=== PATIENT | female | born 1935 | race Caucasian/White ===

== ENCOUNTER 2017-10-07 18:45 | Inpatient (IN) | payer MEDICARE, OTHER ==
[~2017-10-07] VITALS: Ht 152.4 cm; Wt 61.2 kg
[~2017-10-07 18:45] MED LIST: COENZYME Q10200 M2 PO; COUMADIN 5 MG TA5 M1 PO; CRESTOR5 MG; EVISTA PO; LANOXIN 0.120.125 M1 PO; NIASPAN 500 MG500 M1 PO; NORCO 5-325 TA1 EACH PO; SEE COMMENTS; TOPROL XL100 MG PO; VITAMIN D-32000 UNIT PO
[2017-10-07 18:50] VITALS: BP 145/69
[2017-10-07 18:57] LABS: HEMATOCRIT 40.7 % (37.0-47.0); MCH 33.8 pg (26.0-34.0); MCHC 34.5 g/dL (28.0-37.0); MCV 98.1 fL (80.0-100.0); MPV 7.7 fl. (7.2-11.1); NUCLEATED RBCS 0 /100WBC; PLATELET COUNT* 237 thou/uL (150-400); RBC 4.15 mil/uL (4.20-5.00); RDW-CV 13.8 % (10.5-14.5); WBC 7.8 thou/uL (4.0-11.0)
[2017-10-07] MEDS ORDERED: LISINOPRIL20 MG PO (19:02)
[2017-10-07 19:06] LABS: ANION GAP 11 mmol/L (7-16); BUN 12 mg/dL (7-18); CALCIUM 8.3 mg/dL (8.5-10.1); CHLORIDE 102 mmol/L (98-107); CO2 25 mmol/L (21-32); CREATININE 0.8 mg/dL (0.6-1.3); GLUCOSE 132 mg/dL (70-99); POTASSIUM 3.9 mmol/L (3.5-5.1); SODIUM 138 mmol/L (136-145)
[2017-10-07 19:09] LABS: INR 1.7; PROTIME 16.4 Seconds (9.20-11.50)
[2017-10-07 19:16] LABS: ABSOLUTE BASOPHILS 0.1 thou/uL (0.0-0.2); ABSOLUTE NEUTROPHILS 7.3 thou/uL (1.6-8.1); ALBUMIN 3.7 g/dL (3.4-5.0); ALKALINE PHOSPHATASE 62 U/L (46-116); NT-PRO BRAIN NAT PEPTIDE 1344 pg/mL (<300); PLATELET ESTIMATE ADEQUATE; SGOT 31 U/L (15-37); SGPT 29 U/L (30-65); TOTAL BILIRUBIN 0.9 mg/dL (<0.1-1.0); TOTAL PROTEIN 7.9 g/dL (6.4-8.2); TROPONIN-I LEVEL <0.06 ng/mL (<0.06)
[2017-10-07 19:17] LABS: ABSOLUTE LYMPHOCYTES 0.4 thou/uL (0.8-5.3); ABSOLUTE MONOCYTES 0.1 thou/uL (0.0-1.2)
[2017-10-07 20:48] VITALS: BP 149/74
[2017-10-07 21:15] VITALS: BP 164/69
[2017-10-07] MEDS ORDERED: COUMADIN 2.5MG2.5 M1 PO (22:21)
[2017-10-08] VITALS: BP 160/80
[2017-10-08 04:00] VITALS: BP 156/41
--- NOTE | 2017-10-08 04:30 | NUR ---
PT ALERT ORIENTED. BREATH SOUNDS WHEEZING. ON RA. O2 SATS UPPER 90s. TELEMETRY SHOWS SR. FLU SWAB TAKEN AND SENT TO LAB. PT IN ISOLATION FOR DROPLET PRECAUTIONS PENDING RESULTS.
[2017-10-08 05:20] LABS: INFLUENZA A ANTIGEN None Detected (None Detect); INFLUENZA B ANTIGEN None Detected (None Detect)
[2017-10-08 08:00] VITALS: BP 149/66
[2017-10-08 11:30] VITALS: BP 139/53
--- NOTE | 2017-10-08 11:59 | NUR ---
CM ASSESSMENT: Pt is A&O. Resides at [facility]. Independent with ADLS. [facility] provides breakfast and 1 hot meal a day, either lunch or dinner, Pt is able to prepare the 3rd meal. Hx of but does not know the name of the agency. No home o2. Pt has a walker and cane that she can use if necessary. Pt has a cleaning lady. Hx of SNF at [facility]. Pt's goal is to return home once medically stable. Open to HH at [facility] if needed. Following.
--- NOTE | 2017-10-08 13:19 | NUR ---
ASSUMED CARE OF PT AT 0730. PT RESTING IN BED WAITING FOR BREAKFAST. PT A&0X4. DENIES ANY PAIN OR SHORTNESS OF BREATH. PT ON RA SAT 97% THIS AM. WHEEZES NOTED. PT PLACED ON 2L NC FOR COMFORT AND TO EASE BREATHING PT TRACING AFIB ON THE DIRECT MAIL MANAGER, RATE IN THE 110'S. CARDIZEM 30 MG Q6H PO STARTED PER DR HERNANDEZ. FLU SWAB RESULT BACK NEGATIVE. ISOLATION REMOVED. PT UP WITH 1 ASSIST, UNSTEADY AND WEAK. CARDIOLOGY CONSULT IN PLACE. AM ASSESSMENT CHARTED. MEDICATIONS PER DEC. PT REPOSITIONS SELF IN BED WITH REMINDERS. HOURLY ROUNDING OBSERVED. BED IN LOW POSITION. CALL LIGHT WITHIN REACH. WILL CONTINUE PLAN OF CARE.
[2017-10-08 15:30] VITALS: BP 154/62
--- NOTE | 2017-10-08 16:57 | 2DMMODE ---
[place] [address] 2 D/M-MODE ECHOCARDIOGRAM Name: ALBERTA TINOCO Room: [address] IN [facility]#: [id number] Admission: 10/07/17 Attend Phys: Chaya Liu Discharge: Date of : 33 Date of Service: 10/08/17 1657 Report #: [id number] THIS REPORT FOR: //name// APPROVED REPORT Study performed: 10/08/2017 15:41:16 EXAM: Comprehensive 2D, Doppler, and color-flow Echocardiogram Patient Location: In-Patient Room #: [facility] Status: routine BSA: 1.56 HR: 100 bpm BP: 153/82 mmHg Rhythm: Atrial Fibrillation Other Information Study Quality: Good Indications Atrial Fibrillation 2D Dimensions LVEF(%): 50.76 (>50%) IVSd: 10.61 (7-11mm) LVOT Diam: 19.38 (18-24mm) LVDd: 40.86 mm PWd: 9.52 (7-11mm) Ascending Ao: 33.84 (22-36mm) LVDs: 30.44 (25-40mm) Aortic Root: 31.04 mm Delvalle's LVEF: 50.76 % Volumes Left Atrial Volume (Systole) LA ESV Index: 51.20 mL/m2 Aortic Valve AoV Peak Pawel.: 1.49 m/s AO Peak Gr.: 8.89 mmHg LVOT Max P.46 mmHg AO Mean Gr.: 5.35 mmHg LVOT Mean P.99 mmHg LVOT Max V: 1.06 m/s AO V2 VTI: 25.03 cm LVOT Mean V: 0.64 m/s SELMA (VTI): 2.19 cm2 LVOT V1 VTI: 18.56 cm AI [place]: 3.46 m/s2 AI PHT: 349.23 [place] [address] 2 D/M-MODE ECHOCARDIOGRAM Name: ALBERTA TINOCO Room: [address] IN ..#: [id number] Admission: 10/07/17 Attend Phys: Chaya Liu Discharge: Date of : 33 Date of Service: 10/08/17 1657 Report #: [id number] Mitral Valve MV Decel. Time: 190.62 ms MV PHT: 55.28 ms MVA (PHT): 3.98 cm2 TDI Medial E' Pawel.: 0.11 m/s Lateral E' Pawel.: 0.13 m/s Pulmonary Valve PV Peak Pawel.: 1.00 m/s PV Peak Gr.: 4.02 mmHg Tricuspid Valve TR Peak Gr.: 20.52 mmHg RVSP: 25.00 mmHg Left Ventricle The left ventricle is normal size. There is normal LV segmental wall motion. There is normal left ventricular wall thickness. Left ventricular systolic function is normal. The left ventricular ejection fraction is within the normal range. LVEF is 55%. This study is not technically sufficient to allow evaluation of the LV diastolic function due to atrial fibrillation. Right Ventricle The right ventricle is normal size. The right ventricular systolic function is normal. Atria Left atrium is moderately dilated. The right atrium size is normal. Aortic Valve Mild aortic valve sclerosis. Mild aortic regurgitation. There is no aortic valvular stenosis. Mitral Valve The mitral valve is normal in structure. Mild mitral regurgitation. No evidence of mitral valve stenosis. Tricuspid Valve The tricuspid valve is normal in structure. Trace tricuspid regurgitation. The RVSP is ___25____ mmHg. Pulmonic Valve The pulmonary valve is normal in structure. There is no pulmonic [place] [address] 2 D/M-MODE ECHOCARDIOGRAM Name: ALBERTA TINOCO Jacinta Room: [address] IN [facility]#: [id number] Admission: 10/07/17 Attend Phys: Chaya Liu Discharge: Date of : 33 Date of Service: 10/08/17 1657 Report #: [id number] Great Vessels The aortic root is normal in size. IVC is normal in size and collapses with >50% inspiration Pericardium There is no pericardial effusion. <Conclusion> There is normal left ventricular wall thickness. Left ventricular systolic function is normal. The left ventricular ejection fraction is within the normal range. LVEF is 55%. This study is not technically sufficient to allow evaluation of the LV diastolic function due to atrial fibrillation. The right ventricle is normal size. Left atrium is moderately dilated. Mild aortic valve sclerosis. Mild aortic regurgitation. There is no aortic valvular stenosis. The mitral valve is normal in structure. Mild mitral regurgitation. The tricuspid valve is normal in structure. Trace tricuspid regurgitation. The RVSP is ___25____ mmHg. IVC is normal in size and collapses with >50% inspiration There is no pericardial effusion. There is normal LV segmental wall motion. <ELECTRONICALLY SIGNED> By: Levi Willson MD, FACC 10/08/17 1657 165 165 Levi Willson MD, FACC /INF
--- NOTE | 2017-10-08 18:06 | NUR ---
NO ACUTE CHANGES THROUGHOUT SHIFT. REFER TO CHARTING. CARDIOLOGY HERE TO SEE PT. ORDERS RECEIVED FOR ECHO. RESULTS BACK AT 55%. PT CONTINUES TO TRACE AFIB ON THE AGATE SETTER. RATE IN THE 90'S-LOW 100'S, CONTROLLED BETTER THROUGHOUT SHIFT WITH ADDITION OF CARDIZEM Q6H PO. PT CONTINUES TO BE ON RA-2L FOR PT COMFORT SAT UPPER 90'S. DENIES ANY SHORTNESS OF BREATH. PT UP WITH 1 ASSIST TO BSC. MEDICATIONS PER DEC. PT REPOSITIONS SELF IN BED WITH REMINDERS. HOURLY ROUNDING OBSERVED. BED IN LOW POSITION. CALL LIGHT WITHIN REACH. WILL CONTINUE PLAN OF CARE.
[2017-10-08 20:00] VITALS: BP 129/71
[2017-10-09 00:22] VITALS: BP 105/55
[2017-10-09 04:04] VITALS: BP 117/58
[2017-10-09 05:08] LABS: ABSOLUTE EOSINOPHILS 0.4 thou/uL (0.0-0.7); ABSOLUTE LYMPHOCYTES 1.7 thou/uL (0.8-5.3); ABSOLUTE NEUTROPHILS 1.8 thou/uL (1.6-8.1); BASOPHILS 0.8 %; EOSINOPHILS 7.8 %; HEMATOCRIT 38.3 % (37.0-47.0); HEMOGLOBIN 12.8 gm/dL (12.0-15.0); LYMPHOCYTES 34.2 %; MCHC 33.5 g/dL (28.0-37.0); MCV 98.5 fL (80.0-100.0); MONOCYTES 20.7 %; MPV 7.8 fl. (7.2-11.1); NUCLEATED RBCS 0 /100WBC; PLATELET COUNT* 224 thou/uL (150-400); POLYS 36.5 %; RBC 3.88 mil/uL (4.20-5.00); RDW-CV 13.5 % (10.5-14.5); WBC 4.9 thou/uL (4.0-11.0)
--- NOTE | 2017-10-09 05:14 | NUR ---
ASSUMED CARE AROUND 1930. PT A/OX4. NO NEW CONCERNS VOICED DURING SHIFT, RESTED SOME. TELE MONITOR TRACING AFIB WITH HR 80'S-110'S AND UP TO 130'S WHEN UP TO BSC. ON 2L NC, PT REPORTS SOA WITH ACTIVITY. DENIES CHEST PAIN OR OTHER PAIN. IV SALINE LOCKED. UP SBA TO BSC TONIGHT. VSS, AFEBRILE. CALL LIGHT IN REACH, BEDALARM ON, WILL CONTINUE WITH PLAN OF CARE.
[2017-10-09 05:16] LABS: CALCIUM 7.8 mg/dL (8.5-10.1)
[2017-10-09 05:21] LABS: INR 1.6; PROTIME 15.4 Seconds (9.20-11.50)
[2017-10-09 08:00] VITALS: BP 131/57
--- NOTE | 2017-10-09 10:06 | NUR ---
ASSUMED CARE OF PT AT 0730. PT RESTING IN BED WAITING FOR BREAKFAST. PT A&0X4. COMPLAINS OF GENERALIZED PAIN. TREATED WITH PRN TYLENOL WITH RELIEF. PT TRACING AFIB ON THE RENT CONTROL OFFICE MANAGER. RATE IN THE 110'S-120'S. YOLY, CARDIOLOGY CORPORATE EVENTS DIRECTOR HERE TO SEE PT. ORDERS RECEIVED TO DC CARDIZEM 30MG PO Q6H AND ADD CARDIZEM 120 MG PO. REFER TO EMAR. BREATHING TREATMENTS CHANGED TO XOPENEX WELL. PT ON RA SAT 97%. DENIES ANY SHORTNESS OF BREATH. LOOSE COUGH AND WHEEZES NOTED. PT UP WITH 1 ASSIST AND WALKER TO BATHROOM/BSC. PT GOAL FOR TODAY IS TO RATE CONTROL AFIB, WORK WITH PHYSICAL AND OCCUPATIONAL THERAPY AND USE IS Q1HOUR. AM ASSESSMENT CHARTED. MEDICATIONS PER DEC. PT REPOSITIONS SELF IN BED WITH REMINDERS. HOURLY ROUNDING OBSERVED. BED IN LOW POSITION. BED ALARM IN PLACE. FALL PRECAUTIONS IN PLACE. CALL LIGHT WITHIN REACH. WILL CONTINUE PLAN OF CARE.
--- NOTE | 2017-10-09 13:59 | EKG ---
[place] [address] ELECTROCARDIOGRAM REPORT Name: ALBERTA TINOCO Room: [address] ADM IN [facility]#: [id number] Admission: 10/07/17 Attend Phys: Jacinta Lamb Discharge: Date of : 33 Report #: [id number] THIS REPORT FOR: //name// [facility] ED Test Date: 2017-10-07 Test Time: 19:22:58 Pat Name: ALBERTA TINOCO Department: Room: [facility] Gender: F Information Technology Specialist: TV : 1935 Requested By: Jenaro Mann Order Number: [id number] MD: Levi Willson Measurements Intervals [place] Rate: 111 P: OR: QRS: 24 QRSD: 88 T: -22 QT: 327 QTc: 445 Interpretive Statements Atrial fibrillation with an increase response Baseline wander in lead(s) V1,V3 Compared to ECG 03/08/2011 15:04: Possible ischemia now present Electronically Signed On 10-09-2017 13:59:36 PREVENTIVE MEDICINE OFFICER by Levi Willson [email or web address] <ELECTRONICALLY SIGNED> By: Levi Willson MD, [facility] 10/09/17 1859 192 192 Levi Willson MD, [facility] /EPI
[2017-10-09 15:30] VITALS: BP 105/62
--- NOTE | 2017-10-09 16:33 | NUR ---
NO ACUTE CHANGES THROUGHOUT SHIFT. REFER TO CHARTING. PT PROGRESSING TOWARDS GOALS. CARDIOLOGY SIGNED OFF PER YOLY ALMONTE, CARDIOLOGY REFERRAL NURSE. PT WORKED WITH PHYSICAL AND OCCUPATIONAL THERAPY TODAY. TOLERATED WELL. AMBULATED IN THE HALLWAY WITH PHYSICAL THERAPY. CONTINUES TO TRACE AFIB ON THE DISPATCH LEAD. RATE IN THE 80'S-90'S THIS AFTERNOON. ON RA SAT UPPER 90'S. DENIES ANY SHORTNESS OF BREATH. PT UP WITH 1 ASSIST WALKER AND GAIT BELT TO BATHROOM OR BSC. PT UP TO RECLINER MULTIPLE TIMES THROUGHOUT SHIFT. MEDICATIONS PER DEC. PT REPOSITIONS SELF IN BED WITH REMINDERS. HOURLY ROUNDING OBSERVED. BED IN LOW POSITION. BED ALARM IN PLACE. FALL PRECAUTIONS IN PLACE. CALL LIGHT WITHIN REACH. WILL CONTINUE PLAN OF CARE.
[2017-10-09 20:00] VITALS: BP 131/54
[2017-10-10] VITALS: BP 129/54
[2017-10-10 04:00] VITALS: BP 146/51
[2017-10-10 05:08] LABS: HEMATOCRIT 37.9 % (37.0-47.0); HEMOGLOBIN 12.9 gm/dL (12.0-15.0); MCH 33.4 pg (26.0-34.0); MCHC 34.1 g/dL (28.0-37.0); MCV 97.9 fL (80.0-100.0); MPV 7.7 fl. (7.2-11.1); NUCLEATED RBCS 0 /100WBC; PLATELET COUNT* 227 thou/uL (150-400); RBC 3.87 mil/uL (4.20-5.00); WBC 5.4 thou/uL (4.0-11.0)
[2017-10-10 05:10] LABS: INR 1.7; PROTIME 16.6 Seconds (9.20-11.50)
--- NOTE | 2017-10-10 05:21 | NUR ---
ASSUMED CARE OF PATIENT AT APPROXIMATELY 2200. PATIENT HAS BEEN A/O X 4 AND VSS. PATIENT CONTINUES TO HAVE EXPIRATORY WHEEZES DURING BREATHING. PATIENT VERBALIZED THAT BENZONATATE PEARLS APPEAR TO BE HELPING HER COUGHING. PATIENT IS UP WITH ASSIST WHILE USING WALKER TO BATHROOM OR COMMODE. PATIENT REMAINS AFIB ON MONITOR. NURSING TO FOLLOW-UP NECESSARY. ALL FALL PRECAUTIONS IN PLACE, INCLUDING CALL LIGHT WITHIN REACH. WILL CONTINUE TO MONITOR CLOSELY.
[2017-10-10 05:29] LABS: CALCIUM 8.5 mg/dL (8.5-10.1); CREATININE 0.9 mg/dL (0.6-1.3); POTASSIUM 4.2 mmol/L (3.5-5.1)
[2017-10-10 07:05] LABS: ABSOLUTE EOSINOPHILS 0.6 thou/uL (0.0-0.7); ABSOLUTE LYMPHOCYTES 1.7 thou/uL (0.8-5.3); ABSOLUTE MONOCYTES 0.8 thou/uL (0.0-1.2); ABSOLUTE NEUTROPHILS 2.3 thou/uL (1.6-8.1)
[2017-10-10 07:06] LABS: PLATELET ESTIMATE ADEQUATE
[2017-10-10 08:00] VITALS: BP 146/64
[2017-10-10 11:25] VITALS: BP 163/92
[2017-10-10 16:27] VITALS: BP 145/66
--- NOTE | 2017-10-10 18:54 | NUR ---
DAY 4 OF STAY. A/O X 4, UP WITH ASSIST, DID WALK 330+ FEET IN HESS WITH USE OF WALKER AND STANDBY ASSIST. DENIES DISCOMFORT, REPORTS INCREASED PRODUCTION OF PHLEGM/MUCOUS WITH COUGHING. NATHALIE MEDS AND CARES WITHOUT C/O. CONT POC.
[2017-10-10 20:00] VITALS: BP 145/57
--- NOTE | 2017-10-10 22:48 | NUR ---
PATIENT ALERT AND ORIENTED TO SURROUNDINGS. TOOK MEDS WITHOUT DIFFICULTIES. UP TO COMMODE WITH ASSIST OF ONE. BED IN LOW POSITION, BED ALARM ON, CALL LIGHT WITHIN REACH. NO COMPLAINTS OF PAIN OR DISCOMFORT. CONT. TO MONITOR. CONT. WITH CURRENT PLAN OF CARE AT THIS TIME.
[2017-10-11 00:51] VITALS: BP 148/68
--- NOTE | 2017-10-11 02:37 | NUR ---
ARRIVED TO FLOOR APPROX 0055 WITH DAUGHTER. DENIES PAIN OR SOA, COUGH PRESENT, LUNG DIMINISHED. ALERT AND ORIENTED X 4, AMBULATIONS WITH ASSIST OF ONE. ADMITTING DX PNEUMONIA, RECD ABX IN ER, FLUIDS RUNNING. LS DIMINISHED. MIN SPUTUM WHICH IS THICK AND LENNY. WILL PROCEED WITH CURRENT PLAN OF CARE IN PLACE.
[2017-10-11 04:48] LABS: INR 1.9; PROTIME 18.1 Seconds (9.20-11.50)
[2017-10-11 08:10] VITALS: BP 120/82
--- NOTE | 2017-10-11 08:13 | NUR ---
ASSUMED PT. CARE AND RECEIVED REPORT AT 0730. PT A/OX4, VSS, PT. MED/SURG STATUS. PT. DENIES CURRENT PAIN/SOB. ON RA @ 96%. FULL ASSESSMENT COMPLETED, REFER TO CHARTING. PT DENIES WANTING TO GET UP TO CHAIR FOR BREAKFAST, BUT DISCUSSED GOING FOR WALK LATER TO INCREASE ACTIVITY. DR. NAQVI INTO SEE, ANTICIPATE DC TOMORROW. CALL LIGHT IN REACH, WILL CONTINUE WITH PLAN OF CARE.
[2017-10-11 13:18] VITALS: BP 137/61
[2017-10-11 16:30] VITALS: BP 119/65
--- NOTE | 2017-10-11 18:39 | NUR ---
PT. PROGRESSING TOWARDS GOALS. AMBULATED HALLS WITH PHYSICAL THERAPY AND UP TO RECLINER GOOD PORTION OF THE AFTERNOON. HAS DENIED PAIN THROUGH OUT THE DAY. CONTINUES TO HAVE BM'S- HOWEVER THEY ARE SMALL SOFT, NOT LOOSE. ANTICIPATE DC TOMORROW. HOURLY ROUNDING COMPLETED THROUGH THE THE DAY FOR PT. SAFETY.
[2017-10-11 20:00] VITALS: BP 170/72
[2017-10-12] VITALS: BP 113/60
--- NOTE | 2017-10-12 01:15 | NUR ---
DENIES COMPLAINTS. RESTING THUS FAR INTO SHIFT. REPORTS PHYSICIAN STATES HOME TO [place] TOMORROW. WILL CONT. TO MONITOR RESP STATUS. MED/SURG STATUS. NO SIGNS OF DISTRESS. BED IN LOW POSITION, ALARM ON, CALL LIGHT WITHIN REACH. CONT. WITH PLAN OF CARE AT THIS TIME.
[2017-10-12 04:56] LABS: ABSOLUTE LYMPHOCYTES 0.9 thou/uL (0.8-5.3); ABSOLUTE MONOCYTES 0.7 thou/uL (0.0-1.2); ABSOLUTE NEUTROPHILS 13.9 thou/uL (1.6-8.1); HEMATOCRIT 38.3 % (37.0-47.0); LYMPHOCYTES 5.8 %; MCH 33.3 pg (26.0-34.0); MCV 97.9 fL (80.0-100.0); MONOCYTES 4.2 %; MPV 7.9 fl. (7.2-11.1); NUCLEATED RBCS 0 /100WBC; PLATELET COUNT* 272 thou/uL (150-400); RBC 3.91 mil/uL (4.20-5.00); RDW-CV 13.6 % (10.5-14.5); WBC 15.5 thou/uL (4.0-11.0)
[2017-10-12 05:05] LABS: CALCIUM 8.5 mg/dL (8.5-10.1); CREATININE 0.9 mg/dL (0.6-1.3); POTASSIUM 4.2 mmol/L (3.5-5.1)
[2017-10-12 08:12] VITALS: BP 143/64
--- NOTE | 2017-10-12 10:34 | NUR ---
Pt reports feeling better, continues to plan to return home once medically stable for dc. Pt wants to use [facility] [phone]. DC orders, H&P and facesheet will need to be faxed to [facility] at [place]. [phone]
[2017-10-12 10:36] VITALS: BP 143/64
--- NOTE | 2017-10-12 12:00 | NUR ---
ASSUME CARE OF PT. PT UP IN ROOM,DENIES NEEDS.STATES SHE WANTS TO GO HOME TODAY
[2017-10-12 12:02] VITALS: BP 146/115
[2017-10-12] MEDS ORDERED: DIGOXIN125 MCG PO (15:02)
[2017-10-12] MEDS ORDERED: DOXYCYCLINE 10100 MG PO (15:15)
[2017-10-12] MEDS ORDERED: PREDNISONE 10 M10 MG PO (15:15)
[2017-10-12] MEDS ORDERED: LANOXIN 0.120.125 M1 PO (15:25)
[2017-10-12 15:27] VITALS: BP 146/115
[2017-10-12] MEDS ORDERED: CARDIZEM CD120 MG PO (15:27)
[2017-10-12] MEDS ORDERED: PROTONIX40 M1 PO (15:48)
== END 2017-10-12 16:30 | disposition home health service (06) | DRG 177 ==
LOC: M.ERS 18:45 → M.2W 20:19 → M.TBA-ER 20:19 → M.2W 20:54
PROVIDERS: Emergency Medicine; Emergency Medicine Emergency Medical Services; Internal Medicine; ADMIT Internal Medicine
DX: J15.6 Pneumonia due to other Gram-negative bacteria (principal); I50.33 Acute on chronic diastolic (congestive) heart failure; J96.01 Acute respiratory failure with hypoxia; R65.10 Systemic inflammatory response syndrome (SIRS) of non-infectious origin without acute organ dysfunction; I11.0 Hypertensive heart disease with heart failure; I25.10 Atherosclerotic heart disease of native coronary artery without angina pectoris; I48.2 Chronic atrial fibrillation; B34.9 Viral infection, unspecified; J84.89 Other specified interstitial pulmonary diseases; J20.9 Acute bronchitis, unspecified; E78.5 Hyperlipidemia, unspecified; Z85.3 Personal history of malignant neoplasm of breast; Z86.73 Personal history of transient ischemic attack (TIA), and cerebral infarction without residual deficits; I25.2 Old myocardial infarction; Z88.6 Allergy status to analgesic agent; Z79.899 Other long term (current) drug therapy